=== PATIENT | female | born 1980 | race Caucasian/White ===

== ENCOUNTER 2018-07-05 20:45 | Emergency (ER) | payer OTHER ==
[2018-07-05 22:34] LABS: ABSOLUTE BASOPHILS # (AUTO) 0.1 10^3/uL (0.0-0.2); ABSOLUTE EOSINOPHILS # (AUTO) 0.5 10^3/uL (0.0-0.6); ABSOLUTE LYMPHOCYTES (AUTO) 0.7 10^3/uL (0.5-4.7); ABSOLUTE MONOCYTES (AUTO) 0.7 10^3/uL (0.1-1.4); ABSOLUTE NEUT (AUTO) 8.2 10^3/uL (1.7-8.2); BASOPHILS % (AUTO) 0.6 % (0-2); HEMATOCRIT 41.7 % (36.0-47.0); HEMOGLOBIN 14.3 g/dL (12.0-15.5); MEAN CORPUSCULAR HEMOGLOBIN 29.2 pg (27.0-33.4); MEAN CORPUSCULAR HGB CONC 34.3 g/dL (32.0-36.0); MEAN CORPUSCULAR VOLUME 85 fl (80-97); MONOCYTES % (AUTO) 6.8 % (3-13); PLATELET COUNT 291 10^3/uL (150-450); RED CELL DISTRIBUTION WIDTH 14.4 % (11.5-14.0); SEGMENTED NEUTROPHILS % (AUTO) 80.6 % (42-78); TOTAL CELLS COUNTED % (AUTO) 100 %; WHITE BLOOD COUNT 10.2 10^3/uL (4.0-10.5)
--- NOTE | 2018-07-05 22:46 | RADIOLOGY REPORT (SQ) ---
EXAM DESCRIPTION: XR CHEST 1 VIEW COMPLETED DATE/TME: 07/05/2018 22:06 CLINICAL HISTORY: 37 years Female, sob COMPARISON: None. NUMBER OF VIEWS/TECHNIQUE: 1/AP FINDINGS: Adequate lung volume, clear parenchyma, normal cardiac silhouette, and intact bony thorax. IMPRESSION: No acute cardiopulmonary findings.
[2018-07-05 22:54] LABS: VENOUS BLOOD BASE EXCESS -0.4 mmol/L; VENOUS BLOOD HCO3 22.7 mmol/L (20-32); VENOUS BLOOD PCO2 33.1 mmHg (35-63); VENOUS BLOOD PH 7.45 (7.30-7.42)
[2018-07-05] MEDS ORDERED: NORMAL SALINE 1000 ML 1,000 ML IV ONE (23:09)
[2018-07-05] MEDS ORDERED: ACETAMINOPHEN 325 MG TABLET PO ONE (23:10)
[2018-07-05] MEDS ORDERED: DEXAMETHASONE 4 MG TABLET PO ONE (23:11)
--- NOTE | 2018-07-05 23:12 | ER Document Report ---
ED General - General Chief Complaint: Sore Throat Stated Complaint: FEVER Time Seen by Provider: 07/05/18 22:06 Notes: Patient is a 37 year old female with a past medical history of morbid obesity, hypertension, presents with concerns of sore throat, fever and body aches. The patient states that she had a fever 202F today, took ibuprofen with some improvement. She does the pain is mostly located to the right side of her throat and is a dull, scratching, aching discomfort worsened by swallowing. Ibuprofen is moderately improved that pain. She denies a history of similar symptoms in the past. Uncertain of whether or not she has sick contacts. She has not contacted her general doctor regarding today's concerns. She denies any difficulty breathing or swallowing. TRAVEL OUTSIDE OF THE [place] IN LAST 30 DAYS: No - Related Data Allergies/Adverse Reactions: atenolol [Atenolol] Allergy (Severe, Verified 10/20/15 12:03) wheezing metoprolol [Metoprolol] Allergy (Severe, Verified 10/20/15 12:03) wheezing erythromycin base [Erythromycin Base] Allergy (Intermediate, Verified 10/20/15 12:03) stomach pains and diarrhea fluticasone propionate [From Flonase] Allergy (Intermediate, Verified 10/20/15 12:03) panic attack glyburide [Glyburide] Allergy (Mild, Verified 10/20/15 12:03) itching, rash Past Medical History - General Information source: Patient - Social History Smoking Status: Never Smoker Chew tobacco use (# tins/day): No Frequency of alcohol use: None Drug Abuse: None Family History: Reviewed & Not Pertinent Patient has suicidal ideation: No Patient has homicidal ideation: No - Past Medical History Cardiac Medical History: Reports: Hx Hypertension Pulmonary Medical History: Reports: Hx Asthma Renal/ Medical History: Reports: Hx Ovarian Cysts - PCOS. Denies: Hx Peritoneal Dialysis Past Surgical History: Reports: Hx Section, Hx Cholecystectomy - Immunizations Hx Diphtheria, Pertussis, Tetanus Vaccination: No Hx Pneumococcal Vaccination: 11/18/09 Review of Systems - Review of Systems Notes: Constitutional: Positive for fever. HENT: Positive for sore throat. Eyes: Negative for visual changes. Cardiovascular: Negative for chest pain. Respiratory: Negative for shortness of breath. Gastrointestinal: Negative for abdominal pain, vomiting or diarrhea. Genitourinary: Negative for dysuria. Musculoskeletal: Negative for back pain. Skin: Negative for rash. Neurological: Negative for headaches, weakness or numbness. 10 point ROS negative except as marked above and in HPI. Physical Exam - Vital signs Vitals: Temp Pulse Resp BP Pulse Ox 100.9 F H 137 H 20 151/94 H 97 07/05/18 20:59 07/05/18 20:59 07/05/18 20:59 07/05/18 20:59 07/05/18 20:59 Interpretation: Tachycardic, Febrile Notes: PHYSICAL EXAMINATION: GENERAL: Well-appearing, well-nourished and in no acute distress. HEAD: Atraumatic, normocephalic. EYES: Pupils equal round and reactive to light, extraocular movements intact, sclera anicteric, conjunctiva are normal. ENT: nares patent, oropharynx clear without exudates. Mild bilateral posterior pharyngeal erythema. Uvula midline. Moist mucous membranes. NECK: Normal range of motion, supple without lymphadenopathy LUNGS: Breath sounds clear to auscultation bilaterally and equal. No wheezes rales or rhonchi. HEART: Regular tachycardia without murmurs ABDOMEN: Soft, nontender, normoactive bowel sounds. No guarding, no rebound. No masses appreciated. EXTREMITIES: Normal range of motion, no pitting or edema. No cyanosis. NEUROLOGICAL: No focal neurological deficits. Moves all extremities spontaneously and on command. PSYCH: Normal mood, normal affect. SKIN: Warm, Dry, normal turgor, no rashes or lesions noted. Course - Re-evaluation Re-evalutation: 07/05/18 23:10 Patient presents with complaints of throat soreness and dizziness as well as fever at home. Patient is extremely well in appearance, in no distress, airway patent. Although in triage did complain of shortness of breath she denies this complaint to me. Rapid strep is negative. History and exam are not consistent with a retropharyngeal abscess or peritonsillar abscess. Airway is patent. No difficulty handling oral secretions. Patient is noted to be tachycardic at time of presentation likely secondary to fever and also reports that she has a history of tachycardia at baseline typically with a heart rate between 100-110. Patient was treated with a dose of dexamethasone and advised on symptomatic care. Suspect likely viral pharyngitis. At this time will discharge with return precautions and follow-up recommendations. Verbal discharge instructions given a the bedside and opportunity for questions given. Medication warnings reviewed. Patient is in agreement with this plan and has verbalized understanding of return precautions and the need for primary care follow-up in the next 24-72 hours. - Vital Signs Vital signs: Temp Pulse Resp BP Pulse Ox 97.9 F 137 H 13 144/94 H 98 07/06/18 01:47 07/05/18 20:59 07/06/18 02:00 07/06/18 01:57 07/06/18 01:57 - Laboratory Result Diagrams: 07/05/18 22:00 07/06/18 00:45 Laboratory results interpreted by me: 07/05/18 07/05/18 07/06/18 22:00 22:30 00:45 RDW 14.4 H Seg Neutrophils % 80.6 H Lymphocytes % 7.0 L VBG pH 7.45 H VBG pCO2 33.1 L Potassium 3.5 L Chloride 110 H Carbon Dioxide 18 L Glucose 113 H - Diagnostic Test Radiology reviewed: Image reviewed, Reports reviewed Radiology results interpreted by me: 07/05/18 23:11 Chest x-ray: No acute infiltrate or pneumothorax - EKG Interpretation by Me Additional EKG results interpreted by me: 07/05/18 23:12 Sinus tachycardia. Rate 120. No ST elevations or depressions. LVH present unchanged from prior. QTC is 470. Discharge - Discharge Clinical Impression: Sore throat, Viral pharyngitis, Dehydration Condition: Good Disposition: HOME, SELF-CARE Additional Instructions: Your strep test is negative. Your symptoms are likely due to an viral infection and will resolve in the next 1-2 weeks. You have also been given a dose of steroids to help with your throat discomfort. Please continue to take ibuprofen 600 mg every 6 hours or Tylenol 1000 mg every 6 hours as needed for throat discomfort. You can also gargle with salt water. Continue to drink plenty of fluids. Follow-up with your primary care doctor in the next several days. Return if you become unable to swallow, have difficulty breathing, pass out, have persistent vomiting that prevents you from being able to tolerate fluids, or have any other symptoms that are concerning to you. Referrals: GILLIAN AGRAWAL MD [Primary Care Provider] - Follow up as needed
[2018-07-06 01:13] LABS: ALANINE AMINOTRANSFERASE 33 U/L (9-52); ALBUMIN 3.7 g/dL (3.5-5.0); ALKALINE PHOSPHATASE 60 U/L (38-126); ANION GAP 14 (5-19); ASPARTATE AMINO TRANSFERASE 20 U/L (14-36); BILIRUBIN,DIRECT 0.2 mg/dL (0.0-0.4); BILIRUBIN,TOTAL 0.2 mg/dL (0.2-1.3); BLOOD UREA NITROGEN 8 mg/dL (7-20); CALCIUM 8.8 mg/dL (8.4-10.2); CARBON DIOXIDE 18 mmol/L (22-30); CHLORIDE 110 mmol/L (98-107); GLUCOSE 113 mg/dL (75-110); POTASSIUM 3.5 mmol/L (3.6-5.0); SODIUM 141.6 mmol/L (137-145); TOTAL PROTEIN 6.8 g/dL (6.3-8.2)
[2018-07-06 02:12] VITALS: BP 144/94
--- NOTE | 2018-07-06 07:59 | EKG REPORT ---
SEVERITY:- ABNORMAL ECG - SINUS TACHYCARDIA INCOMPLETE RIGHT BUNDLE BRANCH BLOCK LEFT VENTRICULAR HYPERTROPHY : Confirmed by: Jasson Quintanilla MD 06-Jul-2018 07:58:39
== END 2018-07-06 01:47 | disposition home or self-care (01) ==
LOC: ER 20:45
DX: J02.8 Acute pharyngitis due to other specified organisms (principal); B97.89 Other viral agents as the cause of diseases classified elsewhere; E86.0 Dehydration; I11.9 Hypertensive heart disease without heart failure; R00.0 Tachycardia, unspecified; R50.9 Fever, unspecified; R42 Dizziness and giddiness; J45.909 Unspecified asthma, uncomplicated; E66.01 Morbid (severe) obesity due to excess calories; Z68.44 Body mass index [BMI] 60.0-69.9, adult; Z88.8 Allergy status to other drugs, medicaments and biological substances; Z88.1 Allergy status to other antibiotic agents
CPT/HCPCS: 93005; 99284; 96360; 36415; 87040; 87070; 87880; 83605; 84703; 85025; 80053; 82803; 71045; 93010; J7030